=== PATIENT | female | born 2000 | race Caucasian/White ===

== ENCOUNTER → 2019-08-21 11:14 | Outpatient (BNVA) | payer BC, OTHER, SELFPAY | PROVIDERS: Family Provider Nurse Practitioner Family; PCP Nurse Practitioner; Visit Provider Nurse Practitioner | DX: R53.83 Other fatigue (principal) | CPT/HCPCS: 84439; 84443; 84481 ==

== ENCOUNTER → 2019-10-19 08:46 | Outpatient (BNVA) | payer BC, SELFPAY | PROVIDERS: Family Provider Nurse Practitioner Family; PCP Nurse Practitioner; Visit Provider Nurse Practitioner | DX: E06.3 Autoimmune thyroiditis (principal) | CPT/HCPCS: 84443 ==

== ENCOUNTER → 2019-12-14 14:39 | Outpatient (BNVA) | payer BC, OTHER, SELFPAY | PROVIDERS: Family Provider Nurse Practitioner Family; PCP Nurse Practitioner; Visit Provider Nurse Practitioner | DX: J18.9 Pneumonia, unspecified organism (principal) | CPT/HCPCS: 71046 ==

== ENCOUNTER 2020-05-07 19:05 | Emergency (ER) | payer OTHER, SELFPAY ==
[2020-05-07 19:08] VITALS: BP 129/87; PULSE 66; RESP 14; TEMP 36.8; O2SAT 98; BMI 25.7
--- NOTE | 2020-05-07 19:17 | W.ED.GENADLT ---
HPI - General Adult General: Chief complaint: General Medical Stated complaint: needle stick Time Seen by Provider: 05/07/20 19:10 Source: patient Mode of arrival: ambulatory Limitations: no limitations History of Present Illness: HPI narrative: 20-year-old female states she had an accidental needlestick. States she gave patient a Lovenox shot and then stuck her self in the finger. Denies any other injuries. Denies any pain currently Associated symptoms: Deny chest pain, dyspnea, headache(s), nausea, rash or vomiting Review of Systems Const: Denies: fever(s), chills, body aches or change in appetite Eyes: Denies: blurry vision or eye discomfort ENMT: Denies: throat pain or dental pain Card: Denies: chest pain Resp: Denies: dyspnea GI: Denies: abdominal pain, nausea, vomiting or diarrhea : Denies: dysuria Musc: Denies: neck pain or back pain Skin/Breast: Denies: rash Neuro: Denies: headache(s) Psych: Denies: depression Harlan/Lymph: Denies: easy bruising All/Imm: Denies: urticaria PFSH ED PFSH: Medical History Cesilia's thyroiditis Surgical History History of myringotomy Family History Grandfather Diabetes Cancer Father Hypertension Grandmother Cancer Social History Smoking and tobacco status: never smoked Second hand smoke exposure: No Smoking risk assessment/counseling performed?: No Alcohol intake: never Desire information about alcohol rehabilitation?: No Counseling given: No Desire information about substance/drug rehabilitation?: No Counseling given: No Adopted: No Caregiver/support person: No Lives independently: Yes Household members: family Housing: House Marital status: Single Number of children: 0 service: No Current occupational status: student Current occupational exposures/hazards: No History of recent travel: No Current gender identity: Female Female Reproductive History: Date of last menstrual period: 07/21/19 Physical Exam Const: COMMON NORMALS: no acute distress, patient oriented x3 and healthy appearing HENMT: COMMON NORMALS: normocephalic and atraumatic HEAD & SCALP: normocephalic and atraumatic Eye: COMMON NORMALS: Equal, round and reactive pupils present and EOMs intact bilaterally PUPIL: Yes Equal, round and reactive pupils present Neck/C-Spine: COMMON NORMALS: full ROM and supple Chest: COMMONS NORMALS: normal inspection of the chest and normal palpation of entire chest wall Resp: COMMON NORMALS: normal respiratory effort, No retractions, No use of accessory muscles and clear to auscultation bilaterally AUSCULTATION: clear to auscultation bilaterally Cardio: COMMON NORMALS: regular rate, regular rhythm and No murmurs present (Cardio) RATE: regular rate RHYTHM: regular rhythm GI: COMMON NORMALS: Normal to inspection, nondistended, normoactive bowel sounds present, Soft to palpation, non-tender and no masses PALPATION: Yes Soft to palpation Extremity: COMMON NORMALS: normal to inspection and full ROM Neuro: COMMON NORMALS: patient oriented x3, moves all extremities and no focal motor deficits Psych: COMMON NORMALS: mental status grossly normal, Normal thought process present and cooperative THOUGHT PROCESS: Normal thought process present Skin: COMMON NORMALS: no rashes or lesions noted and no wounds GENERAL SKIN EXAM: no rashes or lesions noted Course Vital Signs: Vital signs: Vital Signs Temperature 98.3 F 05/07/20 19:08 Pulse Rate 66 05/07/20 19:08 Respiratory Rate 14 05/07/20 19:08 Blood Pressure 129/87 05/07/20 19:08 Pulse Oximetry 98 05/07/20 19:08 MDM - General Adult MDM Narrative: Medical decision making narrative: Patient presents here with a needlestick injury. Patient is stable for discharge and is to follow-up with PCP. Discharge Plan Discharge Patient Disposition: Home Clinical Impression: Needlestick injury of finger Condition: Stable Prescriptions: No Action fluticasone propionate 50 mcg/actuation spray,suspension 1 spray INTRANASAL Q12H RF: 0 norgestimate-ethinyl estradiol 0.18/0.215/0.25 mg-35 mcg (28) tablet 1 tab PO ONCE RF: 0 cetirizine [Zyrtec] 10 mg tablet 10 mg PO ONCE RF: 0 albuterol sulfate [ProAir HFA] 90 mcg/actuation HFA aerosol inhaler 2 puff INHALATION QID PRN (Reason: shortness of breath or wheezing) Qty: 6.7 RF: 0 methocarbamol [Robaxin-750] 750 mg tablet 750 mg PO .two times day Qty: 24 RF: 0 levothyroxine 25 mcg tablet 25 mcg PO DAILY Qty: 30 RF: 5 Discharge Orders: Discharge Order (Routine); Ordered 05/07/20 Ordered By: Cori Barahona Referrals: Sameera Gonzales FNP [Family Provider] - Marilin Mai FNP-C [Primary Care Provider] - 1-3 days Discharge Diet: Advance as tolerated Discharge Activity: Resume usual activity Patient Instructions: Needle Stick Injuries (ED) Coding Level of Care Code ED Graduating Machine Operator for Silvano Gruber
[2020-05-08 00:59] LABS: HIV 1 & 2 Antibody Non-Reactive (Non-Reactiv); HIV 1 & 2 Antigen Non-Reactive (Non-Reactiv)
[2020-05-08 01:10] LABS: Hepatitis A Antibody IgM Non-Reactive (Nonreactive); Hepatitis B Core AB, Total Non-Reactive (Nonreactive); Hepatitis B Surface AB 3.5 (0-8.5); Hepatitis B Surface Antigen Non-Reactive (Nonreactive); Hepatitis C Virus Antibody Non-Reactive (Nonreactive)
== END 2020-05-07 19:28 | disposition home or self-care (01) ==
LOC: ER 19:14
PROVIDERS: Emergency Provider Emergency Medicine; Family Provider Nurse Practitioner Family; PCP Nurse Practitioner
DX: S61.239A Puncture wound without foreign body of unspecified finger without damage to nail, initial encounter (principal); W46.0XXA Contact with hypodermic needle, initial encounter
CPT/HCPCS: 12345; 36415; 86705; 86706; 86709; 86803; 87340; 87806; 99281; 99282

== ENCOUNTER → 2020-12-12 11:19 | Outpatient (BNVA) | payer OTHER, BC, SELFPAY | PROVIDERS: Family Provider Nurse Practitioner Family; PCP Nurse Practitioner; Visit Provider Nurse Practitioner | DX: Z12.4 Encounter for screening for malignant neoplasm of cervix (principal); E06.3 Autoimmune thyroiditis; Z13.89 Encounter for screening for other disorder | CPT/HCPCS: 81000; 84443; 87491; 87591; 88175 ==

== ENCOUNTER → 2021-06-15 13:48 | Outpatient (BNVA) | payer BC, OTHER, SELFPAY | PROVIDERS: Family Provider Nurse Practitioner Family; PCP Nurse Practitioner; Visit Provider Nurse Practitioner | DX: E06.3 Autoimmune thyroiditis (principal); R00.2 Palpitations | CPT/HCPCS: 80053; 84443; 85025 ==

== ENCOUNTER 2021-08-04 22:55 | Emergency (ER) | payer OTHER, BC, SELFPAY ==
[2021-08-04 23:04] VITALS: BP 142/85; PULSE 86; RESP 18; TEMP 36.6; O2SAT 100; BMI 27.1
--- NOTE | 2021-08-04 23:14 | XRR_ITS ---
PROCEDURE INFORMATION: Exam: XR Chest Exam date and time: 08/04/2021 11:14 PM Age: 21 years old Clinical indication: Chest pressure; Patient HX: Central chest pain. TECHNIQUE: Imaging protocol: XR of the chest. Views: 1 view. COMPARISON: CR XR chest 2V* [id number] 12/14/2019 2:38 PM FINDINGS: Lungs: Unremarkable. No consolidation. Pleural spaces: Unremarkable. No pleural effusion. No pneumothorax. Heart/Mediastinum: Unremarkable. No cardiomegaly. Bones/joints: Unremarkable. XR/XR chest 1V portable [id number] IMPRESSION: No change, unremarkable
--- NOTE | 2021-08-04 23:15 | ECG_ITS ---
[facility] Test Date: 2021-08-04 Pat Name: Agnes Barrera Department: Room: Gender: Female Business Intelligence Administrator: : 2000 Requested By: Norman Driver Order Number: [id number] Dempsey MD: Hakeem Fontana M.D. Measurements Intervals [place] Rate: 84 P: 67 SC: 191 QRS: 74 QRSD: 94 T: 51 QT: 375 QTc: 443 Interpretive Statements SINUS RHYTHM WITH SINUS ARRHYTHMIA LEFT ATRIAL ENLARGEMENT [-0.15mV P-WAVE IN V1/V2] INTERPRETATION BASED ON A DEFAULT AGE OF 40 YEARS No previous ECG available for comparison Electronically Signed On 08-06-2021 8:53:40 ASSISTANT QUALITY MANAGER by Hakeem Fontana M.D. [email or web address]
--- NOTE | 2021-08-04 23:16 | W.ED.CHESTPA ---
HPI - Chest Pain General: Chief Complaint: Chest Pain Stated Complaint: Chest Pain Time Seen by Provider: 08/04/21 23:02 History of Present Illness: HPI narrative: Patient is a 21-year-old female who comes to the ED with chest pain. Past medical history of Cesilia's thyroiditis. Patient says symptoms started today while she was at rest. She describes the chest pain more as chest pressure in the middle of her chest. When the chest pain originally started today she also felt some palpitations initially but those resolved. She had a similar episode like this 6 weeks ago and had a Holter monitor on for 4 days and she is waiting to CV official report. She had another episode 4 days ago on Tuesday, July 31 where she had the chest pain and palpitations and that resolved. Associated symptoms: Reports palpitations; Deny abdominal pain, dyspnea, fever(s), nausea or vomiting Review of Systems Const: Denies: fever(s), chills or fatigue Eyes: Denies: change in vision or eye discomfort ENMT: Denies: throat pain, odynophagia, nasal discharge or nasal congestion Card: Reports: chest pain and palpitations; Denies: edema, swelling of feet/ankles, dyspnea on exertion or orthopnea Resp: Denies: dyspnea, productive cough or non-productive cough GI: Denies: abdominal pain, nausea, vomiting, diarrhea, constipation or hematochezia : Denies: flank pain, dysuria or hematuria Musc: Denies: neck pain, back pain or extremity swelling Skin/Breast: Denies: rash or new lesions Neuro: Denies: headache(s), numbness in extremities or weakness in extremities PFSH ED PFSH: Medical History Cesilia's thyroiditis Oral contraceptive use Surgical History History of myringotomy Family History Grandfather Diabetes Cancer Father Hypertension Grandmother Cancer Social History Smoking and tobacco status: never smoked Second hand smoke exposure: No Smoking risk assessment/counseling performed?: No Alcohol intake: never Desire information about alcohol rehabilitation?: No Counseling given: No Desire information about substance/drug rehabilitation?: No Counseling given: No Adopted: No Caregiver/support person: No Lives independently: Yes Household members: family Housing: House Marital status: Single Number of children: 0 service: No Current occupational status: student Current occupational exposures/hazards: No History of recent travel: No Current gender identity: Female Female Reproductive History: Date of last menstrual period: 07/30/21 Physical Exam Const: COMMON NORMALS: no acute distress, patient oriented x3, healthy appearing and alert GENERAL APPEARANCE: cooperative and comfortable HENMT: COMMON NORMALS: normocephalic HEAD & SCALP: normocephalic MOUTH: Normal oral and palatal mucosa present THROAT: posterior oropharynx normal and uvula midline Neck/C-Spine: COMMON NORMALS: supple GENERAL: Yes normal visual inspection Resp: COMMON NORMALS: normal respiratory effort, No retractions, No use of accessory muscles and clear to auscultation bilaterally AUSCULTATION: clear to auscultation bilaterally Cardio: COMMON NORMALS: regular rate, regular rhythm, S1 normal heart sound present, S2 normal heart sound present, No gallops present (Cardio), No clicks present (Cardio), No murmurs present (Cardio) and Peripheral pulses 2+ throughout RATE: regular rate RHYTHM: regular rhythm HEART SOUNDS: S1 normal heart sound present and S2 normal heart sound present PERIPHERAL PULSES: Peripheral pulses 2+ throughout GI: COMMON NORMALS: Normal to inspection, nondistended, normoactive bowel sounds present, Soft to palpation, non-tender and no masses PALPATION: Yes Soft to palpation : COMMON NORMALS: Yes no CVA tenderness BLADDER/KIDNEY EXAM: Yes no CVA tenderness Back/Pelvis: COMMON NORMALS: no CVA tenderness Extremity: COMMON NORMALS: normal to inspection Neuro: COMMON NORMALS: patient oriented x3 and moves all extremities SENSORIUM/ORIENTATION: Yes alert Skin: GENERAL SKIN EXAM: dry skin Course Reevaluation(s): Reevaluation #1: I went in to reevaluate patient and she said all her symptoms had resolved. She does not feel any chest pressure, chest pain or any palpitations currently. Patient says she feels back to her normal baseline. Time: 00:35 Vital Signs: Vital signs: Vital Signs Temperature 98 F 08/04/21 23:04 Pulse Rate 59 L 08/04/21 23:46 Respiratory Rate 14 08/04/21 23:46 Blood Pressure 126/74 08/04/21 23:46 Pulse Oximetry 97 08/04/21 23:46 MDM - Chest Pain MDM Narrative: Medical decision making narrative: Patient is a 21-year-old female comes to the ED with episode of chest pain and palpitations. Patient has a history of Cesilia's thyroiditis. She has had multiple episodes like this over the past 6 weeks. Patient says her episode started earlier today while she was at rest. Exam of patient is benign. Vitals are stable. Labs are unremarkable and troponin is negative. TSH was elevated 6.58 and free T4 was normal at 1.3. Chest x-ray shows no acute findings. EKG shows sinus rhythm with no ST segment elevation or depression seen. Patient symptoms completely resolved here in the ED. She was diagnosed with noncardiac chest pain and elevated TSH level. She was told to contact her PCP tomorrow to discuss TSH levels and her levothyroxine medication management. Return to ED precautions given. Patient understood agree with plan. Lab Data: Attestation: I reviewed the patient's lab results. Labs: Lab Results 08/04/21 08/04/21 08/04/21 23:44 23:44 23:44 WBC 6.3 10^3/uL 10^3/ uL (4.0-10.0) RBC 4.55 10^6/uL 10^6 /uL (4.1-5.3) Hgb 12.7 g/dL g/dL (11.5-15.3) Hct 38.5 % % (37.0-47.0) MCV 84.6 fl fl (81-99) MCH 27.9 pg L pg (28.0-34.0) MCHC 33.0 g/dL g/dL (30.0-36.0) RDW 12.0 % L % (12.1-15.1) Plt Count 197 10^3/cmm 10^3 /cmm (130-400) MPV 10.1 fL fL (7.4-10.4) Neut % (Auto) 68.5 % % Lymph % (Auto) 22.1 % % Nuckolls % (Auto) 8.7 % % Eos % (Auto) 0.3 % % Baso % (Auto) 0.2 % % Neut # (Auto) 4.32 10^3/uL 10^3 /uL (1.8-7.7) Lymph # (Auto) 1.4 10^3/uL 10^3/ uL (0.8-4.8) Nuckolls # (Auto) 0.6 10^3/uL 10^3/ uL (0.2-0.9) Eos # (Auto) 0.0 10^3/uL 10^3/ uL (0.0-0.8) Baso # (Auto) 0.0 10^3/uL 10^3/ uL (0.0-0.1) Nucleated RBC % (a uto) 0 % % Nucleated RBCs # 0.0 /100WBC /100W BC Sodium 140 mmol/L mmol/L (136-145) Potassium 3.5 mmol/L mmol/L (3.5-5.1) Chloride 107 mmol/L mmol/L (98-107) Carbon Dioxide 20 mmol/L L mmol/ L (22-29) Anion Gap 16.5 (5-19) BUN 11 mg/dL mg/dL (6-20) Creatinine 0.8 mg/dL mg/dL (0.5-0.9) GFR Calculation 88.9 mL/min L mL/ min (90-130) Glucose 97 mg/dL mg/dL (65-115) Calculated Osmolal ity 289 mOsm/kg mOsm/ kg (285-295) Calcium 8.8 mg/dL mg/dL (8.5-10.5) Total Bilirubin 0.3 mg/dL mg/dL (0.15-1.2) AST 11 U/L U/L (0-32) ALT 8 U/L U/L (0-33) Alkaline Phosphata se 44 IU/L IU/L (35-105) Troponin T Baselin e 6 ng/L ng/L (0-10) Total Protein 7.0 g/dL g/dL (6.6-8.7) Albumin 4.3 g/dL g/dL (3.5-5.2) Globulin 2.7 g/dL g/dL (1.3-4.6) TSH 6.58 uIU/mL H uIU /mL (0.27-4.20) Free T4 1.30 ng/dL ng/dL (0.82-1.77) HCG, Qual 08/04/21 23:44 WBC RBC Hgb Hct MCV MCH MCHC RDW Plt Count MPV Neut % (Auto) Lymph % (Auto) Nuckolls % (Auto) Eos % (Auto) Baso % (Auto) Neut # (Auto) Lymph # (Auto) Nuckolls # (Auto) Eos # (Auto) Baso # (Auto) Nucleated RBC % (a uto) Nucleated RBCs # Sodium Potassium Chloride Carbon Dioxide Anion Gap BUN Creatinine GFR Calculation Glucose Calculated Osmolal ity Calcium Total Bilirubin AST ALT Alkaline Phosphata se Troponin T Baselin e Total Protein Albumin Globulin TSH Free T4 HCG, Qual Negative (Negative) Imaging Data^: CXR: Attestation: I personally reviewed and interpreted this imaging study as follows: Radiologist's impression: [employer] [address] XRay Report Signed Patient: Agnes Barrera Unit #: [id number] : 2000 Age/Sex: 21 / F ADM Date: 08/04/21 Loc: ER Room/Bed: Attending Dr: Ordering Provider/Ordering MD: Norman Driver Date of Service: 08/04/21 Procedure(s): XR chest 1V portable [id number] Accession Number(s): [id number] Report Number: [id number] PROCEDURE INFORMATION: Exam: XR Chest Exam date and time: 08/04/2021 11:14 PM Age: 21 years old Clinical indication: Chest pressure; Patient HX: Central chest pain. TECHNIQUE: Imaging protocol: XR of the chest. Views: 1 view. COMPARISON: CR XR chest 2V* [id number] 12/14/2019 2:38 PM FINDINGS: Lungs: Unremarkable. No consolidation. Pleural spaces: Unremarkable. No pleural effusion. No pneumothorax. Heart/Mediastinum: Unremarkable. No cardiomegaly. Bones/joints: Unremarkable. XR/XR chest 1V portable [id number] IMPRESSION: No change, unremarkable Dictated By: Jose Eduardo Capone MD Signed By: Jose Eduardo Capone MD Signed Date/Time: 08/05/21 0031 DD/ 2314 EKG Data^: EKG 1: Attestation: I personally reviewed and interpreted this EKG as follows: EKG interpretation date: 12/21/21 Interpretation: Sinus rhythm, 84 bpm, no ST segment elevation or depression seen. Discharge Plan Discharge Patient Disposition: Home Clinical Impression: Non-cardiac chest pain, Elevated TSH Condition: Stable Prescriptions: No Action norgestimate-ethinyl estradiol 0.18/0.215/0.25 mg-35 mcg (28) tablet 1 tab PO DAILY Qty: 84 RF: 3 levothyroxine 50 mcg tablet 50 mcg PO DAILY Qty: 30 RF: 5 Discharge Orders: Discharge ED (Routine); Ordered 08/05/21 Ordered By: Norman Driver Referrals: Marilin Mai FNP-C [Primary Care Provider] - Discharge Diet: Regular Discharge Activity: Resume usual activity Patient Instructions: Noncardiac Chest Pain (ED) Activity Restrictions/Additional Instructions: Follow-up with medical provider as directed. Call your primary care provider tomorrow morning to discuss your thyroid medication management and recent symptoms. Have follow-up labs done at your primary care doctor in the next week to recheck TSH levels. Return to the ER or your medical provider if condition worsens. Please read and understand discharge instructions. Thank you for choosing [facility] for your healthcare needs today. Please realize this is an emergency room and that we are providing you with a medical screening exam and this may not be complete and all inclusive of all the testing and or work up that you may need to determine your ailment or severity of your illness. It is very important that you follow up as instructed or that you return to the Emergency Department should you have concerns or if your condition changes or worsens in any way. Coding Level of Care Code ED Building Certifier for Silvano Gruber Exam Comprehensive
[2021-08-04 23:46] VITALS: BP 126/74; PULSE 59; RESP 14; O2SAT 97
[2021-08-04 23:48] LABS: Basophils % 0.2 %; Eosinophils % 0.3 %; Hematocrit 38.5 % (37.0-47.0); Hemoglobin 12.7 g/dL (11.5-15.3); Lymphocytes # 1.4 10^3/uL (0.8-4.8); Lymphocytes % 22.1 %; Mean Corpuscular Hemoglobin 27.9 pg (28.0-34.0); Mean Corpuscular Volume 84.6 fl (81-99); Mean Platelet Volume 10.1 fL (7.4-10.4); Monocytes # 0.6 10^3/uL (0.2-0.9); Monocytes % 8.7 %; Neutrophils # 4.32 10^3/uL (1.8-7.7); Neutrophils % 68.5 %; Nucleated Red Blood Cells % 0 %; Platelet Count 197 10^3/cmm (130-400); Red Blood Count 4.55 10^6/uL (4.1-5.3); White Blood Count 6.3 10^3/uL (4.0-10.0)
[2021-08-05 00:09] LABS: HCG, Serum Qual Negative (Negative)
[2021-08-05 00:13] LABS: Troponin(5th) Baseline 6 ng/L (0-10)
[2021-08-05 00:23] LABS: Alanine Aminotransferase 8 U/L (0-33); Albumin Level 4.3 g/dL (3.5-5.2); Alkaline Phosphatase 44 IU/L (35-105); Anion Gap 16.5 (5-19); Aspartate Amino Transferase 11 U/L (0-32); Blood Urea Nitrogen 11 mg/dL (6-20); Calcium 8.8 mg/dL (8.5-10.5); Carbon Dioxide 20 mmol/L (22-29); Chloride 107 mmol/L (98-107); Globulin 2.7 g/dL (1.3-4.6); Glomerular Filtration Rate 88.9 mL/min (90-130); Glucose 97 mg/dL (65-115); Osmolality Calculated 289 mOsm/kg (285-295); Potassium 3.5 mmol/L (3.5-5.1); Sodium 140 mmol/L (136-145); Thyroid Stimulating Hormone 6.58 uIU/mL (0.27-4.20); Total Bilirubin 0.3 mg/dL (0.15-1.2)
[2021-08-05 01:54] VITALS: BP 107/80; PULSE 73; RESP 19; O2SAT 98
== END 2021-08-05 01:35 | disposition home or self-care (01) ==
PROVIDERS: Emergency Provider Physician Assistant; PCP Nurse Practitioner
DX: R07.9 Chest pain, unspecified (principal); R94.6 Abnormal results of thyroid function studies; E06.3 Autoimmune thyroiditis
CPT/HCPCS: 36415; 71045; 80053; 84439; 84443; 84484; 84703; 85025; 93005; 99283

== ENCOUNTER 2021-09-21 08:14 | Outpatient (CLI) | payer OTHER, BC, SELFPAY ==
--- NOTE | 2021-09-21 08:00 | USCV_ITS ---
Agnes Barrera Age: 21 Gender: F : 2000 Exam Date: 09/21/2021 08:27 Ordering Phys: Dany Morris MD ([email or web address]) Technologist: Veronica Willis Exam Location: [facility] [place] Indication: SOB BP: 120 / 83 HR: 69 Rhythm: Other Technical Quality: Adequate MEASUREMENTS (Male / Female) Normal Values 2D ECHO LV Diastolic Diameter PLAX 4.2 cm 4.2 - 5.9 / 3.9 - 5.3 cm LV Systolic Diameter PLAX 2.5 cm LV Chamber Size 3.7 cm IVS Diastolic Thickness 1.1 cm 0.6 - 1.0 / 0.6 - 0.9 cm IVS Systolic Thickness 1.4 cm LVPW Diastolic Thickness 0.9 cm 0.6 - 1.0 / 0.6 - 0.9 cm LVPW Systolic Thickness 1.7 cm RV Chamber Size 2.4 cm LVOT Diameter 2.0 cm LV Ejection Fraction 2D Teich 70.5 % LV Ejection Fraction MOD 2C 65.2 % LV Ejection Fraction 2C AL 66.5 % LA Diameter 3.0 cm LA Width 3.2 cm LA Height 3.3 cm RA Width 2.9 cm RA Height 4.2 cm Aorta at Sinotubular Diameter 2.7 cm M-MODE Aortic Annulus Diameter 3.8 cm LA Ao Ratio MM 0.9 MV E Point Septal Separation 0.6 cm DOPPLER AV Peak Velocity 133.0 cm/s LVOT Peak Velocity 91.3 cm/s AV Area Cont Eq vti 2.0 cm squared AV Area Cont Eq pk 2.2 cm squared MV Area PHT 3.2 cm squared Mitral E to A Ratio 1.2 MV E' Velocity 54.5 cm/s Mitral E to MV E' Ratio 5.7 Mitral E to LV E' Lateral Ratio 5.0 Mitral E to LV E' Septal Ratio 6.6 TR Peak Velocity 198.1 cm/s TR Peak Gradient 15.7 mmHg TR Mean Velocity 153.0 cm/s TR Mean Gradient 10.3 mmHg TR Velocity Time Integral 52.9 cm TV Peak E Velocity 92.0 cm/s Right Atrial Pressure 3.0 mmHg Pulmonary Artery Systolic Pressu 18.7 mmHg PV Peak Velocity 58.0 cm/s RV Acceleration Time 0.2 s RV Ejection Time 0.4 s RV AcT/ET 0.5 FINDINGS Left Ventricle Normal left ventricular cavity size. Normal left ventricular wall thickness. No regional wall motion abnormalities. Left ventricular ejection fraction is estimated at 60 %. Normal diastolic function. Right Ventricle The right ventricle is normal in size and function. Right Atrium The right atrium is normal in size. Left Atrium The left atrium is normal in size. Mitral Valve Mildly thickened mitral valve. No mitral valve stenosis. Mild mitral valve regurgitation. Aortic Valve Structurally normal aortic valve without significant sclerosis or stenosis. There is no aortic regurgitation. Tricuspid Valve Mild tricuspid valve regurgitation. Pulmonic Valve Structurally normal pulmonic valve without significant stenosis. There is no pulmonic regurgitation. Pericardium Normal pericardium without effusion. Aorta Normal ascending aorta dimension. CONCLUSIONS 1-Normal left ventricular cavity size. Normal left ventricular wall thickness. No regional wall motion abnormalities. Left ventricular ejection fraction is estimated at 60 %. Normal diastolic function. 2-Mildly thickened mitral valve. No mitral valve stenosis. Mild mitral valve regurgitation. 3-Structurally normal aortic valve without significant sclerosis or stenosis. There is no aortic regurgitation. 4-Mild tricuspid valve regurgitation. 5-There is no pericardial effusion. 6-Pulmonary artery systolic pressure is within normal limits. 7-Right atrial pressure is around 5 mm of mercury. 8-There are no prior echocardiogram studies to compare. Dany Morris MD (Electronically Signed) Final Date: 22 September 2021 18:49 S
== END 2021-09-21 08:15 | disposition home or self-care (01) ==
LOC: RAD 08:17
PROVIDERS: PCP Nurse Practitioner; Visit Provider Internal Medicine Cardiovascular Disease
DX: R06.02 Shortness of breath (principal); R07.9 Chest pain, unspecified; R00.2 Palpitations; I05.9 Rheumatic mitral valve disease, unspecified; I07.1 Rheumatic tricuspid insufficiency
CPT/HCPCS: 93306

== ENCOUNTER 2021-10-06 10:13 | Outpatient (CLI) | payer OTHER, BC, SELFPAY ==
[2021-10-06 11:13] LABS: Free T4 Free Thyroxine 1.16 ng/dL (0.82-1.77); Thyroid Stimulating Hormone 4.67 uIU/mL (0.27-4.20)
[2021-11-24 13:10] LABS: Free T4 Free Thyroxine 1.35 ng/dL (0.82-1.77); Thyroid Stimulating Hormone 1.71 uIU/mL (0.27-4.20)
== END 2021-10-06 10:14 | disposition home or self-care (01) ==
LOC: LAB 10:18
PROVIDERS: PCP Nurse Practitioner; Visit Provider Internal Medicine
DX: E03.8 Other specified hypothyroidism (principal)
CPT/HCPCS: 36415; 84439; 84443

== ENCOUNTER → 2021-10-27 10:36 | Outpatient (BNVA) | payer SELFPAY | PROVIDERS: PCP Nurse Practitioner; Referring Provider Dermatology; Visit Provider Dermatology | DX: Z01.89 Encounter for other specified special examinations (principal) ==

== ENCOUNTER 2021-11-24 06:00 | Outpatient (CLI) | payer OTHER, BC, SELFPAY | END 2021-11-24 06:01 | disposition home or self-care (01) | LOC: LAB 12-01 09:22 | PROVIDERS: PCP Nurse Practitioner; Visit Provider Internal Medicine | DX: E03.8 Other specified hypothyroidism (principal); E06.3 Autoimmune thyroiditis | CPT/HCPCS: 36415; 84439; 84443 ==

== ENCOUNTER → 2022-03-10 15:43 | Outpatient (BNVA) | payer BC, OTHER, SELFPAY | PROVIDERS: PCP Nurse Practitioner; Visit Provider Nurse Practitioner Family | DX: R50.9 Fever, unspecified (principal); J02.9 Acute pharyngitis, unspecified | CPT/HCPCS: 87071; 87880 ==

== ENCOUNTER 2022-05-02 11:17 | Outpatient (CLI) | payer OTHER, BC, SELFPAY ==
[2022-05-02 12:17] LABS: Free T4 Free Thyroxine 1.36 ng/dL (0.82-1.77)
== END 2022-05-02 11:18 | disposition home or self-care (01) ==
PROVIDERS: PCP Nurse Practitioner; Visit Provider Internal Medicine
DX: E03.8 Other specified hypothyroidism (principal); E06.3 Autoimmune thyroiditis
CPT/HCPCS: 36415; 84439; 84443

== ENCOUNTER 2022-07-27 10:01 | Outpatient (CLI) | payer SELFPAY ==
[2022-07-27 11:13] LABS: HF Add Manual Diff No
[2022-07-27 11:14] LABS: Basophils % 0.5 %; Hematocrit 38.4 % (37.0-47.0); Hemoglobin 12.7 g/dL (11.5-15.3); Lymphocytes # 1.3 10^3/uL (0.8-4.8); Lymphocytes % 31.8 %; Mean Corpuscular HGB Conc 33.1 g/dL (30.0-36.0); Mean Corpuscular Hemoglobin 28.5 pg (28.0-34.0); Mean Corpuscular Volume 86.1 fl (81-99); Mean Platelet Volume 10.1 fL (7.4-10.4); Monocytes # 0.4 10^3/uL (0.2-0.9); Monocytes % 9.2 %; Neutrophils # 2.31 10^3/uL (1.8-7.7); Neutrophils % 57.3 %; Nucleated Red Blood Cells % 0 %; Platelet Count 200 10^3/cmm (130-400); Red Blood Count 4.46 10^6/uL (4.1-5.3); Red Cell Distribution Width 12.3 % (12.1-15.1)
[2022-07-27 11:49] LABS: Alanine Aminotransferase 8 U/L (0-33); Albumin Level 4.1 g/dL (3.5-5.2); Alkaline Phosphatase 47 U/L (35-105); Anion Gap 10.8 (5-19); Aspartate Amino Transferase 13 U/L (0-32); Blood Urea Nitrogen 10 mg/dL (6-20); Calcium 8.9 mg/dL (8.5-10.5); Carbon Dioxide 26 mmol/L (22-29); Chloride 104 mmol/L (98-107); Chol HDL Ratio 2.44 mg/dL (0.0-4.40); Cholesterol 122 mg/dL (0-200); Globulin 2.7 g/dL (1.3-4.6); Glomerular Filtration Rate 102.8 mL/min (90-130); Glucose 88 mg/dL (65-115); HDL Cholesterol 50 mg/dL (60-100); LDL Cholesterol Calculated 62 mg/dL (50-129); LDL HDL Ratio 1.24 RATIO (0.00-3.22); Osmolality Calculated 282 mOsm/kg (285-295); Potassium 3.8 mmol/L (3.5-5.1); Sodium 137 mmol/L (136-145); Thyroid Stimulating Hormone 2.59 uIU/mL (0.27-4.20); Total Bilirubin 0.5 mg/dL (0.15-1.2); Total Protein 6.8 g/dL (6.6-8.7); Triglycerides 48 mg/dL (0-150)
[2022-07-27 12:14] LABS: Estmated Average Glucose 91; Hemoglobin A1C 4.8 % (4.0-6.0)
== END 2022-07-27 10:02 | disposition home or self-care (01) ==
LOC: LAB 10:03
PROVIDERS: PCP Nurse Practitioner; Visit Provider Dermatology
DX: Z01.89 Encounter for other specified special examinations (principal)

== ENCOUNTER 2022-09-22 12:39 | Outpatient (CLI) | payer OTHER, SELFPAY ==
[2022-09-22 19:39] LABS: Free T4 Free Thyroxine 1.25 ng/dL (0.82-1.77); Thyroid Stimulating Hormone 1.77 uIU/mL (0.27-4.20)
== END 2022-09-22 12:40 | disposition home or self-care (01) ==
LOC: LAB 12:46
PROVIDERS: PCP Nurse Practitioner; Visit Provider Internal Medicine
DX: E03.8 Other specified hypothyroidism (principal); E06.3 Autoimmune thyroiditis
CPT/HCPCS: 36415; 84439; 84443

== ENCOUNTER 2022-10-19 15:18 | Outpatient (CLI) | payer OTHER, SELFPAY ==
--- NOTE | 2022-10-19 15:15 | US_ITS ---
WS: [id number] ULTRASOUND THYROID TECHNIQUE: Ultrasound of the thyroid. CLINICAL INFORMATION: Please Look at lymph nodes COMPARISON: None. FINDINGS: Thyroid: Right and left thyroid lobes are normal in size and echotexture. No thyroid nodules are pres ent. Right thyroid lobe: 4.7 cm x 1.8 cm x 1.4 cm Left thyroid lobe: 4.4 cm x 1.7 cm x 1.0 cm. Isthmus: 0.3 mm. Cervical lymphadenopathy: Enlarged lymph node in the area of concern RIGHT neck just below the ear me asuring 1.3 x 0.5 x 2.0 cm most likely reactive in a patient this age. US/US thyroid [id number] IMPRESSION: 1. Normal thyroid ultrasound examination. 2. Enlarged lymph node RIGHT neck just below the ear measuring 1.3 x 0.5 x 2.0 cm most likely reactive in a patient this age.
== END 2022-10-19 15:19 | disposition home or self-care (01) ==
LOC: RAD 15:25
PROVIDERS: PCP Nurse Practitioner; Visit Provider Internal Medicine
DX: E03.8 Other specified hypothyroidism (principal); E06.3 Autoimmune thyroiditis
CPT/HCPCS: 76536